=== PATIENT | female | born 1980 | race Caucasian/White ===

== ENCOUNTER 2025-02-22 13:06 | Outpatient (CLI) | payer OTHER, SELFPAY ==
--- NOTE | ~2025-02-22 | MM_ITS ---
EXAMINATION: MM screening yue BI w bao HISTORY: Screening TECHNIQUE: Craniocaudal and mediolateral oblique 3-D tomosynthesis images were obtained and synthetic 2-D images were generated. CAD analysis was submitted and interpreted. COMPARISON: No prior mammogram is available for comparison at this institution. 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 There are no suspicious calcifications, masses or architectural distortion in the left yoel ast to suggest malignancy. IMPRESSION: 1. Possible architectural distortion central aspect of the right breast on CC view, posterior third. 2. Additional mammographic views and possible breast ultrasound are recommended. BI-RADS Category 0: Incomplete: Needs additional imaging evaluation. Reviewed, dictated and finalized at location B. IMPRESSION: 1. Possible architectural distortion central aspect of the right breast on CC v iew, posterior third. 2. Additional mammographic views and possible breast ultrasound are recommended . BI-RADS Category 0: Incomplete: Needs additional imaging evaluation.
== END 2025-02-22 13:07 | disposition home or self-care (01) ==
DX: Z12.31 Encounter for screening mammogram for malignant neoplasm of breast (principal); R92.8 Other abnormal and inconclusive findings on diagnostic imaging of breast
CPT/HCPCS: 77063; 77067

== ENCOUNTER 2025-03-19 07:57 | Outpatient (CLI) | payer OTHER, SELFPAY ==
--- NOTE | ~2025-03-19 | MM_ITS ---
EXAMINATION: MM diagnostic yue BI w bao HISTORY: Possible right breast distortion TECHNIQUE: Additional 3-D tomosynthesis images of the right breast were performed and synthetic 2-D i mages were generated. CAD analysis was submitted and interpreted. COMPARISON: 02/22/2025 BREAST PARENCHYMAL COMPOSITION:Dense: The breasts are heterogeneously dense, which may obscure small masses. FINDINGS: The area of possible distortion right breast effaces with spot compression. No persistent m ass lesion or distortion seen. No suspicious microcalcification. IMPRESSION: No mammographic evidence for malignancy. BI-RADS Category 1: Negative Reviewed, dictated and finalized at location M.
--- NOTE | ~2025-03-19 | US_ITS ---
EXAMINATION TYPE: US breast BI limited COMPARISON: NONE REASON FOR STUDY: Nipple Discharge TECHNIQUE: Targeted sonographic evaluation of the bilateral subareolar regions was performed. INTERPRETATION: No solid or cystic lesion seen in the subareolar regions. Single mildly dilated duct noted at the 2:0 0-3:00 position left subareolar region. No intraductal mass evident on this exam.. IMPRESSION: Single mildly dilated duct in the left breast, as detailed above, without identifiable intraductal ma ss on this exam. Breast MRI recommended to further evaluate for any possibility of small intraductal mass.. BI-RADS CATEGORY: BI-RADS 0: Needs additional imaging evaluation Reviewed, dictated and finalized at location . IMPRESSION: Single mildly dilated duct in the left breast, as detailed above, without ident ifiable intraductal mass on this exam. Breast MRI recommended to further evalua te for any possibility of small intraductal mass.. BI-RADS CATEGORY: BI-RADS 0: Needs additional imaging evaluation
== END 2025-03-19 07:58 | disposition home or self-care (01) ==
PROVIDERS: PCP Nurse Practitioner; Visit Provider Nurse Practitioner
DX: R92.8 Other abnormal and inconclusive findings on diagnostic imaging of breast (principal)
CPT/HCPCS: 76642; 77062; 77066; G0279